=== PATIENT | female | born 1950 | race Caucasian/White ===

== ENCOUNTER 2018-06-06 01:41 | Emergency (ER) | payer MEDICARE ==
[2018-06-06 03:12] LABS: BASOPHILS % (AUTO) 0.6 % (0.0-5.0); EOSINOPHILS % (AUTO) 1.7 % (0.0-8.0); HEMATOCRIT 37.6 % (36-48); LYMPHOCYTES % (AUTO) 15.5 % (21.0-51.0); MEAN CORPUSCULAR HEMOGLOBIN 30.7 pg (27.0-33.0); MEAN CORPUSCULAR HGB CONC 33.8 g/dL (32.0-36.0); MEAN CORPUSCULAR VOLUME 90.8 fL (79-99); MONOCYTES % (AUTO) 5.6 % (3.0-13.0); NEUTROPHILS % (AUTO) 76.6 % (40.0-77.0); PLATELET COUNT (AUTO) 231 K/uL (130-400); RED BLOOD CELL COUNT(AUTO) 4.15 MIL/uL (4.00-5.50); RED CELL DISTRIBUTION WIDTH 13.5 % (11.0-15.5); WHITE BLOOD COUNT (AUTO) 8.4 K/uL (4.8-10.8)
[2018-06-06 03:25] LABS: CREATININE 1.2 mg/dL (0.5-1.5); POTASSIUM 4.4 mmol/L (3.5-5.1)
[2018-06-06 03:30] LABS: ALBUMIN 3.6 g/dL (3.5-5.0); BILIRUBIN,TOTAL 0.3 mg/dL (0.2-1.0); TOTAL PROTEIN, SERUM 7.4 g/dL (6.0-8.3)
[2018-06-06] MEDS ORDERED: INSULIN HUMULIN R 100 UNIT/ML 3ML ONE (03:38)
== END 2018-06-06 05:12 | disposition home or self-care (01) ==
LOC: EDH 01:41
DX: F41.9 Anxiety disorder, unspecified (principal); E11.65 Type 2 diabetes mellitus with hyperglycemia; E78.5 Hyperlipidemia, unspecified; Z88.0 Allergy status to penicillin
CPT/HCPCS: 36415; 80053; 82948; 85025; 96361; 96374; 99284; J1815

== ENCOUNTER → 2024-04-29 | Outpatient (CLI) | payer MEDICARE ==
--- NOTE | 2024-04-30 08:42 | HMCSR ---
APPROVED REPORT EXAM: Two-dimensional and M-mode echocardiogram with Doppler and color Doppler. INDICATION ICD: R55 Syncope and collapse 2D Dimensions RVDd3.4 cmLVEF(%)61.9 (>50%)LVED Vol(simp.)111.0 mL IVSd1.0 (0.7-1.1cm)FS(%)33 %LVES Vol(simp.)49.0 mL LVDd4.8 (3.8-5.6cm)LA (2D)4.2 (1.6-4.0cm)LVEF(%, simp.)56 % PWd0.9 (0.7-1.1cm)Ao Root(2D)2.9 (2.0-3.7cm)LA ESV INDEX (BP)34.51 mL/m2 LVDs3.2 (2.5-4.0cm)LVOT diam1.9 (1.8-2.4cm) IVC diam1.3 cm M-Mode Dimensions LA (MM)4.5 (1.6-4.0cm) Ao Root(MM)2.8 (2.0-3.7cm) Aortic Valve AoV Vmax1.2 m/Babita Peak GR6.1 mmHgLVOT Vmax1.3 m/s AoV VTI0.3 mAo Mean GR3.1 mmHgLVOT VTI0.33 m TIA (VMAX)3.3 cm2AVA (VTI) 3.3 cm2 Mitral Valve MV E Vmax97.3 cm/sDECEL Pjnh789 ms MV A Vmax94.3 cm/s E/A ratio1.0 MR Max PG88 mmHg TDI E/E' Hlogni16.5E/E' Buynhta13.1 Pulmonary Valve PV Vmax0.9 m/sPV VTI0.23 mPV Mean GR2 mmHg PV Peak GR3.5 mmHg Tricuspid Valve TR Vmax2.9 m/sRAP (EST) 3 yyDoKBYR77.4 mmHg TR Peak GR33.4 mmHg Left Ventricle Left ventricular cavity size is normal. There is normal left ventricular wall thickness. LVEF is 55-6 0%. Grade 2 diastolic dysfunction. Right Ventricle The right ventricle is normal size. The right ventricular systolic function is normal. Atria The left atrium is mildly dilated. The right atrium size is normal. Aortic Valve Aortic valve is trileaflet. Aortic valve leaflets are sclerotic but open well. Trace aortic regurgita tion. There is no aortic valvular stenosis. Mitral Valve Mitral valve leaflets are mildly sclerotic but open well. Mitral regurgitation is trace. There is no mitral valve stenosis. Tricuspid Valve The tricuspid valve leaflets appear normal. There is trace to mild tricuspid regurgitation. Right zulema tricular systolic pressure is estimated at 30-40 mmHg. Pulmonic Valve Pulmonic valve is not well visualized. There is trace pulmonic valvular regurgitation. Great Vessels The aortic root is normal in size. The IVC is normal in size and collapses >50% with inspiration. Pericardium No pericardial effusion. Conclusion LVEF is 55-60%. Grade 2 diastolic dysfunction. Trace aortic regurgitation. Mitral regurgitation is trace. There is trace to mild tricuspid regurgitation. Right ventricular systolic pressure is estimated at 30-40 mmHg.
== END | disposition home or self-care (01) ==
LOC: SHCH 14:29
PROVIDERS: ATTEND Internal Medicine Cardiovascular Disease
DX: I08.3 Combined rheumatic disorders of mitral, aortic and tricuspid valves (principal); R55 Syncope and collapse
CPT/HCPCS: 93306